=== PATIENT | male | born 1960 | race Caucasian/White ===

== ENCOUNTER 2017-05-04 18:07 | Emergency (ER) | payer OTHER ==
--- NOTE | 2017-05-04 18:31 | PDOC ---
Rapid Medical Evaluation Medical Evaluation: 05/04/17 18:29 I have performed a brief in-person evaluation of this patient. The patient presents with a chief complaint of: Syncope w/ ?palpitations an gr ago while home. No CP or SOB. H/o HTN Pertinent physical exam findings:Stable w/ unremarkable exam I have ordered the following:exr/cxr/labs The patient will proceed to the ED for further evaluation.
[2017-05-04 18:33] VITALS: TEMP 99.4; BMI 24.3
[2017-05-04 18:50] LABS: BASO % 0.5 % (0-2.0); EOS % 1.6 % (0-4.5); HEMATOCRIT 38.4 % (35.4-49); LYMPH % 15.9 % (8-40); MEAN CELL VOLUME 85.3 fl (80-96); MEAN PLT VOLUME 7.2 fl (7.5-11.1); MONO % 9.3 % (3.8-10.2); NEUT % 72.7 % (42.8-82.8); PLATELET COUNT 322 K/MM3 (134-434); RDW 12.8 % (11.9-15.9); WHITE BLOOD COUNT 9.1 K/mm3 (4.0-10.0)
[2017-05-04 19:13] LABS: ALBUMIN 3.8 g/dl (3.4-5.0); ANION GAP 6 (8-16); BILIRUBIN,TOTAL 0.6 mg/dL (0.2-1.0); BLOOD UREA NITROGEN 18 mg/dL (7-18); CALCIUM 8.4 mg/dL (8.5-10.1); CHLORIDE 102 mmol/L (98-107); CO2 31 mmol/L (21-32); GLUCOSE,RANDOM 83 mg/dL (74-106); POTASSIUM 3.9 mmol/L (3.5-5.1); SGOT/AST 20 U/L (15-37); SGPT/ALT 36 U/L (12-78); SODIUM 139 mmol/L (136-145); TOT PROT 7.3 g/dl (6.4-8.2)
[2017-05-04 19:15] LABS: ALK PHOS 86 U/L (45-117)
[2017-05-04 20:35] VITALS: BP 122/74; PULSE 68
--- NOTE | 2017-05-04 21:14 | PDOC ---
History of Present Illness - General Chief Complaint: Syncope/Near Syncope Stated Complaint: HIGH BP, FAINTED Time Seen by Provider: 05/04/17 18:32 History Source: Patient Exam Limitations: No Limitations - History of Present Illness Initial Comments: 05/04/17 21:06 56 with h/o htn presents to the ED for episode of syncope earlier today. Patient was on the computer and fell down after getting up and walking a few steps. Patient says he was feeling dizzy and unstable on his feet. No headache, no sob, chest pain. Past History - Past Medical History Allergies/Adverse Reactions: Allergies Allergy/AdvReac Type Severity Reaction Status Date / Time No Known Allergies Allergy Verified 05/04/17 18:29 Home Medications: Ambulatory Orders Losartan/Hydrochlorothiazide [Losartan-Hctz 50-12.5 mg Tab] 1 each PO DAILY #30 tablet 05/04/17 COPD: No - Suicide/Smoking/Psychosocial Hx Smoking History: Never smoked Review of Systems - Review of Systems Able to Perform ROS?: Yes Is the patient limited [place] proficient: No Constitutional: No: Symptoms Reported HEENTM: Yes: See HPI Respiratory: No: Symptoms reported Cardiac (ROS): No: Symptoms Reported ABD/GI: No: Symptoms Reported : No: Symptoms Reported Musculoskeletal: No: Symptoms Reported Integumentary: No: Symptoms Reported Neurological: No: Symptoms reported *Physical Exam - Vital Signs Last Vital Signs Temp Pulse Resp BP Pulse Ox 99.4 F 68 19 122/74 97 05/04/17 18:29 05/04/17 20:34 05/04/17 18:29 05/04/17 20:34 05/04/17 18:29 - Physical Exam General Appearance: Yes: Nourished, Appropriately Dressed. No: Apparent Distress HEENT: positive: EOMI, SARAH, Normal ENT Inspection Neck: positive: Trachea midline. negative: Tender Respiratory/Chest: positive: Lungs Clear, Normal Breath Sounds. negative: Chest Tender, Respiratory Distress Cardiovascular: positive: Regular Rhythm, Regular Rate, S1, S2 Gastrointestinal/Abdominal: positive: Normal Bowel Sounds, Flat, Soft. negative : Tender Musculoskeletal: positive: Normal Inspection. negative: CVA Tenderness Extremity: positive: Normal Capillary Refill, Normal Inspection, Normal Range of Motion Integumentary: positive: Normal Color, Dry, Warm Neurologic: positive: Fully Oriented, Alert, Normal Mood/Affect ED Treatment Course - LABORATORY CBC & Chemistry Diagram: 05/04/17 18:40 05/04/17 18:40 - ADDITIONAL ORDERS Additional order review: Laboratory Results 05/04/17 18:40 Sodium 139 Potassium 3.9 Chloride 102 Carbon Dioxide 31 Anion Gap 6 L BUN 18 Creatinine 1.0 Creat Clearance w eGFR > 60 Random Glucose 83 Calcium 8.4 L Total Bilirubin 0.6 AST 20 ALT 36 Alkaline Phosphatase 86 Creatine Kinase 206 Creatine Kinase Index 1.6 CK-MB (CK-2) 3.476 Troponin I < 0.02 Total Protein 7.3 Albumin 3.8 05/04/17 18:40 RBC 4.50 MCV 85.3 MCHC 34.0 RDW 12.8 MPV 7.2 L Neutrophils % 72.7 Lymphocytes % 15.9 Monocytes % 9.3 Eosinophils % 1.6 Basophils % 0.5 Medical Decision Making - Medical Decision Making 05/04/17 21:15 orthostatic appropriate, normal labs Probable supratherapeutic dose of losartan, patient will need closer follow up with PCP. Will write for lower dose of medication until patient can see pcp d/c 05/04/17 21:17 *DC/Admit/Observation/Transfer Diagnosis at time of Disposition: Syncope - Discharge Dispostion Disposition: HOME Admit: No - Referrals Referrals: Asif Chiu MD [Primary Care Provider] - - Patient Instructions Printed Discharge Instructions: DI for Syncope in Adults (Fainting) Additional Instructions: Come back to the Emergency department for any new, concerning or worsening symptom. Follow up with you pcp Dr. Chiu tomorrow - Post Discharge Activity
--- NOTE | 2017-05-04 21:35 | PDOC ---
Attending Attestation - Resident Resident Name: Alfa Lott - ED Attending Attestation I have performed the following: I have examined & evaluated the patient, The case was reviewed & discussed with the resident, I agree w/resident's findings & plan - HPI HPI: 05/04/17 21:22 Pt comes after fainting at home. He was sitting at the computer and got up, lost balance and fell, but no head trauma. - Physicial Exam PE: 05/04/17 21:22 Agree with resident exam - Medical Decision Making 05/04/17 21:23 Pt has low BP. We will cut his losartan/HCTZ dose from 100/25mg to 50/12.5mg
[2017-05-04 21:39] LABS: URINE APPEARANCE CLEAR; URINE BILIRUBIN NEGATIVE (NEGATIVE); URINE BLOOD NEGATIVE (NEGATIVE); URINE COLOR STRAW; URINE GLUCOSE (UA) NEGATIVE (NEGATIVE); URINE KETONE NEGATIVE (NEGATIVE); URINE LEUK ESTERASE NEGATIVE (NEGATIVE); URINE NITRITE NEGATIVE (NEGATIVE); URINE PROTEIN NEGATIVE (NEGATIVE); URINE UROBILINOGEN NEGATIVE mg/dL (0.2-1.0)
--- NOTE | 2017-05-06 13:20 | EKG ---
Test Reason : Blood Pressure : / mmHG Vent. Rate : 070 BPM Atrial Rate : 070 BPM P-R Int : 178 ms QRS Dur : 088 ms QT Int : 394 ms P-R-T Axes : 070 081 049 degrees QTc Int : 425 ms NORMAL SINUS RHYTHM NORMAL ECG NO PREVIOUS ECGS AVAILABLE Confirmed by JANICE GONG MD ([id number]) on 05/06/2017 1:20:41 PM Referred By: Confirmed By:JANICE GONG MD
== END 2017-05-04 22:27 | disposition home or self-care (01) ==
LOC: JER 18:07
DX: R55 Syncope and collapse (principal); W18.39XA Other fall on same level, initial encounter; Y93.C1 Activity, computer keyboarding; Y92.038 Other place in apartment as the place of occurrence of the external cause; I10 Essential (primary) hypertension
CPT/HCPCS: 36415; 71045-TC; 80053; 81003; 82550; 82553; 84484; 85025; 93005; 93010; 99283-25

== ENCOUNTER 2024-06-27 19:23 | Observation (INO) | payer OTHER ==
[2024-06-27 19:35] VITALS: BMI 22.4
[2024-06-27] MEDS ORDERED: ALBUTEROL SO4 2.5/IPRATROPIUM 0.5 INH SOL 3 ML VIAL.NEB. NEB ONE (19:39)
[2024-06-27] MEDS ORDERED: methylPREDNISolone NA SUCC 125 MG/2 ML VIAL ONE (20:05)
[2024-06-27] MEDS: methylPREDNISolone NA SUCC 125 MG/2 ML VIAL IVPUSH ONE (20:09)
[2024-06-27 22:56] LABS: HEMOGLOBIN 12.8 GM/dL (11.7-16.9); MCH 27.3 pg (25.7-33.7); MCHC 32.8 g/dl (32.0-35.9); MEAN CELL VOLUME 83.3 fl (80-96); PLATELET COUNT 347 10^3/uL (134-434); RBC 4.69 M/mm3 (4.00-5.60); RDW 13.3 % (11.9-15.9); WHITE BLOOD COUNT 11.6 K/mm3 (4.0-10.0)
[2024-06-27 23:23] LABS: POTASSIUM 3.9 mmol/L (3.5-5.1)
[2024-06-27 23:25] LABS: CALCIUM 9.3 mg/dL (8.5-10.1)
[2024-06-27 23:26] LABS: BLOOD UREA NITROGEN 10.2 mg/dL (7-18)
[2024-06-27 23:29] LABS: CREATININE 0.9 mg/dL (0.55-1.3)
[2024-06-27 23:30] LABS: BILIRUBIN,TOTAL 0.4 mg/dL (0.2-1); TOT PROT 7.8 g/dl (6.4-8.2)
[2024-06-28 02:33] LABS: INR 1.11 (0.83-1.09); PROTHROMBIN TIME (PATIENT) 12.1 SEC (9.7-13.0)
[2024-06-28 02:42] LABS: ACTIVATED PTT 31.1 SECONDS (25.2-36.5)
[2024-06-28 06:16] LABS: HEMATOCRIT 41.1 % (35.4-49); HEMOGLOBIN 13.5 GM/dL (11.7-16.9); MCH 27.9 pg (25.7-33.7); MCHC 32.9 g/dl (32.0-35.9); MEAN CELL VOLUME 84.6 fl (80-96); PLATELET COUNT 383 10^3/uL (134-434); RBC 4.86 M/mm3 (4.00-5.60); RDW 13.2 % (11.9-15.9); WHITE BLOOD COUNT 9.7 K/mm3 (4.0-10.0)
[2024-06-28 06:35] VITALS: RESP 18
[2024-06-28 09:19] LABS: ANISOCYTOSIS 0; MACROCYTOSIS 0
[2024-06-28 09:20] LABS: ALBUMIN 4.2 g/dl (3.4-5.0); BILIRUBIN,TOTAL 0.4 mg/dL (0.2-1); BLOOD UREA NITROGEN 11.5 mg/dL (7-18); CALCIUM 9.4 mg/dL (8.5-10.1); POTASSIUM 4.6 mmol/L (3.5-5.1); TOT PROT 8.2 g/dl (6.4-8.2)
[2024-06-28] MEDS: guaiFENesin 600 MG TABLET.ER (FP) PO SCH (10:27)
[2024-06-28] MEDS: LISINOPRIL 10 MG TABLET PO SCH (10:27)
[2024-06-28] MEDS: predniSONE 10 MG TABLET (UD) PO SCH (10:27)
[2024-06-28] MEDS: ENOXAPARIN NA (PORCINE) 40 MG/0.4 ML DISP.SYRIN SQ SCH (10:28)
[2024-06-28 18:30] VITALS: BP 160/96; PULSE 98; TEMP 98.9
== END 2024-06-28 19:16 | disposition home or self-care (01) ==
LOC: JER 19:23 → INTOOBSV 23:40 → JERBED 23:40 → J4S 06-28 05:52
PROVIDERS: ADMIT Student in an Organized Health Care Education/Training Program; ATTEND Nurse Practitioner Family
PROC: 3E023GC Introduction of Other Therapeutic Substance into Muscle, Percutaneous Approach (ICD-10-PCS; principal; 2024-06-27)
PROC: 3E033GC Introduction of Other Therapeutic Substance into Peripheral Vein, Percutaneous Approach (ICD-10-PCS; 2024-06-27)
DX: R06.00 Dyspnea, unspecified (principal); R05.9 Cough, unspecified; R79.89 Other specified abnormal findings of blood chemistry; I10 Essential (primary) hypertension; Z29.89 Encounter for other specified prophylactic measures; Z85.21 Personal history of malignant neoplasm of larynx
CPT/HCPCS: 0241U-QW; 36415; 70360-TC-FY; 71045-TC-FY; 71275-TC; 80053; 84146; 84484; 85025; 85610; 85730; 93005; 93010; 93306-TC; 96372; 96374; 99285-25; G0378; Q9967